=== PATIENT | male | born 1980 | race Caucasian/White ===

== ENCOUNTER 2024-04-17 16:43 | Inpatient (IN) | payer BC, SELFPAY ==
[2024-04-17 12:42] VITALS: BP 137/92
--- NOTE | 2024-04-17 13:40 | ED.GENMED ---
History of Present Illness
<Gregg Russo, DO - Last Filed: 04/18/24 06:14>
General
Chief Complaint: Skin Problem
Source: patient and records (Prior perianal abscess April 2022)
Exam Limitations: none
Time Seen by Provider: 04/17/24 13:16
Nursing documentation reviewed up to this point in time: agreed with
Travel History
Have you had any contact with someone who has COVID-19?: No
Do you have any symptoms of coronavirus? Fever > 100 degrees, chills, cough, shortness of breath, sore throat, loss of taste or smell, muscle aches, or headache?: No
History of Present Illness
History of Present Illness:
44-year-old male presents emergency room complaining of perianal swelling, concern for perianal abscess as he had it 2 years ago.
Past History
<Gregg Russo, DO - Last Filed: 04/18/24 06:14>
Past History
ED Past Medical History: Asthma, Hypercholesterolemia and NIDDM
ED Past Surgical History: Other (Perianal abscess drainage)
Social History
Tobacco: Non-smoker
Alcohol: Occasional
Personal:
Review of Systems
<Gregg Russo, DO - Last Filed: 04/18/24 06:14>
Review of Systems
Allergies reviewed?: Yes
All Other Systems: Not applicable
Constitutional: Reports no symptoms; Denies fever
EENT: Reports no symptoms
Respiratory: Reports no symptoms
Cardiac: Reports no symptoms
ABD/GI: Reports other (Lump right perianal)
: Reports no symptoms
Musculoskeletal: Reports no symptoms
Skin: Reports no symptoms
Neurological: Reports no symptoms
Endocrine: Reports no symptoms
Hematologic/Lymphatic: Reports no symptoms
Psychiatric: Reports no symptoms
Phy Exam
<Gregg Russo, DO - Last Filed: 04/18/24 06:14>
Physical Exam
Physical Exam:
Physical Exam
General: Afebrile
Neck: supple. no meningeal signs. normal posterior pharynx
Heart: s1/s2 regular rate and rhythm, no murmur. equal radial
pulses.
HEENT: Pupils equal round reactive to light, EOMI
Lungs: no acute respiratory distress. clear bilaterally
Abdomen: normal bowel sounds. not tender. no CVAT, perianal swelling right side 10 o'clock position
Neuro: alert and oriented. no focal neurological deficits cranial nerves II through XII intact
Skin: no rash
Psychiatric: well kept. interactive and cooperative
Extremities: no edema. no calf tenderness. negative homans. good distal pulses
Course
<Gregg Russo, DO - Last Filed: 04/18/24 06:14>
Orders/Labs/Results
Orders:
Orders
04/17/24 Breakfast
1800 calorie (15 carb) Diabetic
At Your Request: Full Participation
04/17/24 13:18
IV Insert/Care/Rem.- Treatment PRN
04/17/24 13:20
CT Abd/pelvis W Iv Cont Urgent
Comment:
Reason For Exam: rectal pain, hx perianal abscess
04/17/24 13:38
Type+Screen Urgent
Complete Blood Count/With Diff Urgent
Comprehensive Metabolic Panel Urgent
04/17/24 16:22
Admit/Transfer Patient As Directed
Co-Sign Provider:
Level of Care: Inpatient admission
Assign to:: Medical/Surgical
Physician / Group: ban
Diagnosis: rectal abscess
Reason for Hospitalization: rectal abscess
Expected length of stay greater than two midnights?: Yes
ELOS- Estimated Length of Stay in days: 3
I certify the patient meets the requirements for IP care: Yes
04/17/24 16:23
Code Status As Directed
Resuscitation Status: Full Code
04/17/24 16:27
Piperacillin/Tazo 4.5 Gram [Zosyn] 4.5 gram in 100 ml IV NOW
04/17/24 16:42
Ibuprofen [Motrin] 600 mg PO Q6HPRN PRN
04/17/24 17:12
Acetaminophen [Tylenol] 650 mg PO Q4HPRN PRN
Dextrose 50%-Water [Dextrose 50% Syringe] 12.5 grams IV [id number] PRN
Glucagon [GlucaGen] 1 mg IM PRN PRN
Insulin Aspart Corrective Low [Novolog Flexpen-Low Resistance] See Protocol SC AC
04/17/24 17:12
ColoRectal Surgery Consult Routine
Consulting Provider: Ck Crook
Was physician already notified: Yes
Activity As Directed
Activity Level: Out of Bed-Early Mobility
Bedside Glucose Monitoring As Directed
Frequency: AC&HS
Additional Instructions:: Change to q6h if pt on TPN, tube feeding or not eating
Intake/ Output As Directed
Frequency: Per unit guidelines
Pneumatic Compression Sleeves As Directed
Type: Thigh high
Vital Signs As Directed
Frequency: Per unit guidelines
DX Deep Vein Thrombosis Video Routine
04/17/24 20:00
Budesonide/Formoterol 160/4.5 [Symbicort 160/4.5 Mcg Inhaler] 2 puff INH R Q12
04/18/24 00:00
Piperacillin/Tazo 3.375 Gram [Zosyn] 3.375 gram in 50 ml IV Q6
04/18/24 04:22
Basic Metabolic Panel IN AM
Complete Blood Count/No Diff IN AM
Glycohemoglobin (HgbA1c) IN AM
04/18/24 Breakfast
NPO
Allow oral meds: Yes
Allow clear liquids: No
04/19/24 06:00
Basic Metabolic Panel IN AM
Complete Blood Count/No Diff IN AM
04/20/24 06:00
Basic Metabolic Panel IN AM
Complete Blood Count/No Diff IN AM
04/21/24 06:00
Basic Metabolic Panel IN AM
Complete Blood Count/No Diff IN AM
04/22/24 06:00
Basic Metabolic Panel IN AM
Complete Blood Count/No Diff IN AM
Abnormal Lab Results
04/17/24
13:38
WBC 11.1 H 10^3/uL
(4.8-10.8)
Absolute Neuts (auto) 8.4 H 10^3/uL
(1.4-6.5)
Absolute Monos (auto) 1.0 H 10^3/uL
(0.1-0.6)
Neutrophils % 75.3 H %
(42.2-75.2)
Lymphocytes % 14.0 L %
(20.5-51.1)
Creatinine 0.6 L mg/dL
(0.7-1.3)
Glucose 116 H mg/dl
(70-99)
04/17/24 13:38
04/17/24 13:38
Vital Signs
Initial and Last Documented VS:
Initial Vital Signs
Temp Pulse Resp BP Pulse Ox
98.6 F 92 16 137/92 98
04/17/24 12:42 04/17/24 12:42 04/17/24 12:42 04/17/24 12:42 04/17/24 12:42
Last Documented Vital Signs
Temp Pulse Resp BP Pulse Ox
98.9 F 86 19 114/56 98
04/17/24 23:20 04/17/24 23:20 04/17/24 23:20 04/17/24 23:20 04/17/24 23:20
yasmin;Kelechi Moore, DO - Last Filed: 04/17/24 15:43>
Orders/Labs/Results
Orders:
Orders
04/17/24 Breakfast
1800 calorie (15 carb) Diabetic
At Your Request: Full Participation
04/17/24 13:18
IV Insert/Care/Rem.- Treatment PRN
04/17/24 13:20
CT Abd/pelvis W Iv Cont Urgent
Comment:
Reason For Exam: rectal pain, hx perianal abscess
04/17/24 13:38
Type+Screen Urgent
Complete Blood Count/With Diff Urgent
Comprehensive Metabolic Panel Urgent
04/17/24 16:22
Admit/Transfer Patient As Directed
Co-Sign Provider:
Level of Care: Inpatient admission
Assign to:: Medical/Surgical
Physician / Group: ban
Diagnosis: rectal abscess
Reason for Hospitalization: rectal abscess
Expected length of stay greater than two midnights?: Yes
ELOS- Estimated Length of Stay in days: 3
I certify the patient meets the requirements for IP care: Yes
04/17/24 16:23
Code Status As Directed
Resuscitation Status: Full Code
04/17/24 16:27
Piperacillin/Tazo 4.5 Gram [Zosyn] 4.5 gram in 100 ml IV NOW
04/17/24 16:42
Ibuprofen [Motrin] 600 mg PO Q6HPRN PRN
04/17/24 17:12
Acetaminophen [Tylenol] 650 mg PO Q4HPRN PRN
Dextrose 50%-Water [Dextrose 50% Syringe] 12.5 grams IV [id number] PRN
Glucagon [GlucaGen] 1 mg IM PRN PRN
Insulin Aspart Corrective Low [Novolog Flexpen-Low Resistance] See Protocol SC AC
04/17/24 17:12
ColoRectal Surgery Consult Routine
Consulting Provider: Ck Crook
Was physician already notified: Yes
Activity As Directed
Activity Level: Out of Bed-Early Mobility
Bedside Glucose Monitoring As Directed
Frequency: AC&HS
Additional Instructions:: Change to q6h if pt on TPN, tube feeding or not eating
Intake/ Output As Directed
Frequency: Per unit guidelines
Pneumatic Compression Sleeves As Directed
Type: Thigh high
Vital Signs As Directed
Frequency: Per unit guidelines
DX Deep Vein Thrombosis Video Routine
04/17/24 20:00
Budesonide/Formoterol 160/4.5 [Symbicort 160/4.5 Mcg Inhaler] 2 puff INH R Q12
04/18/24 00:00
Piperacillin/Tazo 3.375 Gram [Zosyn] 3.375 gram in 50 ml IV Q6
04/18/24 04:22
Basic Metabolic Panel IN AM
Complete Blood Count/No Diff IN AM
Glycohemoglobin (HgbA1c) IN AM
04/18/24 Breakfast
NPO
Allow oral meds: Yes
Allow clear liquids: No
04/19/24 06:00
Basic Metabolic Panel IN AM
Complete Blood Count/No Diff IN AM
04/20/24 06:00
Basic Metabolic Panel IN AM
Complete Blood Count/No Diff IN AM
04/21/24 06:00
Basic Metabolic Panel IN AM
Complete Blood Count/No Diff IN AM
04/22/24 06:00
Basic Metabolic Panel IN AM
Complete Blood Count/No Diff IN AM
Abnormal Lab Results
04/17/24
13:38
WBC 11.1 H 10^3/uL
(4.8-10.8)
Absolute Neuts (auto) 8.4 H 10^3/uL
(1.4-6.5)
Absolute Monos (auto) 1.0 H 10^3/uL
(0.1-0.6)
Neutrophils % 75.3 H %
(42.2-75.2)
Lymphocytes % 14.0 L %
(20.5-51.1)
Creatinine 0.6 L mg/dL
(0.7-1.3)
Glucose 116 H mg/dl
(70-99)
04/17/24 13:38
04/17/24 13:38
Vital Signs
Initial and Last Documented VS:
Initial Vital Signs
Temp Pulse Resp BP Pulse Ox
98.6 F 92 16 137/92 98
04/17/24 12:42 04/17/24 12:42 04/17/24 12:42 04/17/24 12:42 04/17/24 12:42
Last Documented Vital Signs
Temp Pulse Resp BP Pulse Ox
98.9 F 86 19 114/56 98
04/17/24 23:20 04/17/24 23:20 04/17/24 23:20 04/17/24 23:20 04/17/24 23:20
<Gregg Russo, DO - Last Filed: 04/18/24 06:14>
MDM/Problems Addressed
Differential Diagnosis Includes:
Perianal abscess
MDM/Problems Addressed:
44-year-old male with likely right perianal abscess. CT scan pending. Will discuss with colorectal surgery after CT is resulted
Chronic conditions affecting care: DM
<Gregg Russo, DO - Last Filed: 04/18/24 06:14>
*Radiology
Radiology exam reviewed: radiology read reviewed (ct a/p 3 cm perirectal abscess, moderate fat only containing umbilical hernia)
*Pulse Oximetry
Patient hypoxic: no
*EKG
Interpreted by ED Provider?: NA
*Tailer In Interpretation
Rate: Tailer In- N/A
Data Reviewed
Review of Other/Old Records Reveals: Operative Reports (Prior bedside incision and drainage to drain perianal abscess by Dr. Crook 05/03/2022)
Source: records
<Kelechi Moore, DO - Last Filed: 04/17/24 15:43>
*Critical Care Note
Total Time (30-74mins, 75-104mins- exclusive of procedures): Not Applicable
<Gregg Russo, DO - Last Filed: 04/18/24 06:14>
Patient Management
Social determinants of health affecting care: Living situation
Discussion with other providers: Hospitalist and Nail Expert (Colorectal surgery Dr. Pham)
Escalation/DeEscalation of care consider admission/obs:
Admit indicated
<Kelechi Moore, DO - Last Filed: 04/17/24 15:43>
Update Note
Update Note:
Signout pending CAT scan, received a message from colorectal surgery patient with a small recurrent abscess plan to be admitted to the medical service for antibiotics
Reviewed with patient and nursing
ED Attending Note
<Gregg Russo, DO - Last Filed: 04/18/24 06:14>
-
Portions of this chart may have been created with voice recognition software.� Occasional wrong word or��sound alike� substitutions may have occurred due to the inherent limitations of voice recognition software.
Discharge Plan
Departure
Patient Disposition: Admit
Date of Disposition: 04/17/24
Time of Disposition: 15:41
Admit to: Med/Surg
Presentation/result/management discussed w/ accepting MD/DO: Hospitalist
Patient with high blood pressure during this ER visit?: No
Condition: Good
Discharge Problem:
Perianal abscess
Interventions
Interventions:
*Risk Screen - Suicide Last Done: 04/17/24 12:42
*General Assessment Last Done: 04/17/24 12:42
*Neglect/Abuse Screening Last Done: 04/17/24 12:42
ED- Fall Risk Assessment Last Done: 04/17/24 13:55
*ED COVID-19 Vaccine History Last Done: 04/17/24 14:47
*Nursing Disposition Last Done: 04/17/24 17:09
Discharge Date and Time
Discharge Date/Time: 04/17/24 17:09
[2024-04-17 13:46] LABS: % Basophils 0.3 % (0-2); % Immature Granulocytes 0.4 % (0-0.5); % Neutrophils 75.3 % (42.2-75.2); Absolute Eosinophils 0.1 10^3/uL (0-0.7); Absolute Lymphocytes 1.6 10^3/uL (1.2-3.4); Absolute Neutrophils 8.4 10^3/uL (1.4-6.5); Hematocrit 41.4 % (39.0-52.0); Hemoglobin 14.3 g/dL (13.0-18.0); Mean Corp Hgb Conc. 34.5 g/dL (33.0-37.0); Mean Corpuscular Hgb 30.4 pg (27.0-31.0); Mean Corpuscular Volume 88.1 fL (80.0-94.0); Mean Platelet Volume 9.7 fL (7.4-10.4); Nucleated Red Blood Cells % 0 % (-); Platelet Count 235 10^3/uL (130-400); Red Cell Dist. Width 13.8 % (11.5-14.5); White Blood Cell Count 11.1 10^3/uL (4.8-10.8)
[2024-04-17 14:07] LABS: ALT (SGPT) 25 U/L (0-50); AST (SGOT) 23 U/L (17-59); Albumin 3.6 g/dl (3.5-5.0); Alkaline Phosphatase 90 U/L (38-126); Blood Urea Nitrogen 18 mg/dl (9-20); Calcium 9.1 mg/dl (8.4-10.2); Carbon Dioxide 25 mmol/L (22-30); Chloride 107 mmol/L (98-107); Glucose 116 mg/dl (70-99); Sodium 140 mmol/L (135-145); Total Protein 6.6 g/dl (6.3-8.2); eGFR > 60.00
[2024-04-17 15:35] VITALS: BP 122/64
--- NOTE | 2024-04-17 16:07 | HPS.HSE ---
Family Physician
<HARSHIL Giles - Last Filed: 04/17/24 16:29>
-
Family Physician: Clive Ferguson
Chief Complaint
<HARSHIL Giles - Last Filed: 04/17/24 16:29>
-
Rectal pain
History of Present Illness
44-year-old with past medical history for asthma, type 2 diabetes, rectal abscess. Presented to us with rectal swelling as well as pain for past 3 to 4 days. Denies any constipation, diarrhea, abdominal pain. Pain worse with sitting. He took
Advil this morning. patient denied any fever, chills, chest pain, short of breath. Patient denied any headache, dizziness, syncopal episode. Patient denied dysuria hematuria
Medical History
<HARSHIL Giles - Last Filed: 04/17/24 16:29>
Past Medical History
Past Medical History: Reports Other
Additional Past Medical History:
Perianal abscess hypertension hyperlipidemia
Type 2 diabetes
Past Surgical History: Reports Other
Additional Past Surgical History:
drainage of perianal abscess
Social History
Tobacco: Non-smoker
Alcohol: Occasional
Drug: None
Personal:
Living: With Family
Employment: Employed
Family History
Family History: Not pertinent
Allergies / Home Medications
Allergies reflects when Allergies were last updated in [facility].
Home Medications with original date entered in [facility]
Allergy/Medication List:
Allergies
Allergy/AdvReac Type Severity Reaction Status Date / Time
No Known Allergies Allergy Verified 04/17/24 12:42
Home Medications
budesonide-formoterol HFA 160 mcg-4.5 mcg/actuation aerosol inhaler (Symbicort) 2 puff inhalation R Q12 Lung/breathing issues 05/03/22
ibuprofen 200 mg tablet (Advil) 200 mg PO Q6HPRN PRN mild pain 04/17/24
semaglutide 2 mg/dose (8 mg/3 mL) subcutaneous pen injector (Ozempic) 2 mg SC TU 04/17/24
Review of Systems
<HARSHIL Giles - Last Filed: 04/17/24 16:29>
-
Constitutional: Reports No Symptoms
EENT: Reports No Symptoms
Respiratory: Reports No Symptoms
Cardiac: Reports No Symptoms
Abdomen/GI: Reports No Symptoms
: Reports No Symptoms
Musculoskeletal: Reports No Symptoms
Skin: Reports No Symptoms
Neurological: Reports No Symptoms
Endocrine: Reports No Symptoms
Hematologic/Lymphatic: Reports No Symptoms
Psych: Reports No Symptoms
Physical Exam
<HARSHIL Giles - Last Filed: 04/17/24 16:29>
Vital Signs
Vital Signs
Temp Pulse Resp BP Pulse Ox
98.6 F 86 16 122/64 95
04/17/24 12:42 04/17/24 15:35 04/17/24 12:42 04/17/24 15:35 04/17/24 15:35
Physical Exam
General: Well Developed, Well Nourished and No Apparent Distress
HEENT: NormoCephalic, Moist mucous membranes and Atraumatic
Respiratory: Clear
Cardiac: S1/S2 and Regular Rhythm; No Murmur or Rub
GI: Soft, Non Tender, Non Distended and Normal Bowel Sounds; No Organomegaly
Rectal: Deferred by Provider
Musculoskeletal: No Clubbing, No Cyanosis and No Edema
Skin: No Rash
Neuro: AO x 3 and Nonfocal/grossly intact
Psych: Calm
Laboratory Results
<HARSHIL Giles - Last Filed: 04/17/24 16:29>
-
04/17/24 13:38
04/17/24 13:38
Laboratory Results
Total Bilirubin 1.0 mg/dl (0.2-1.3) 04/17/24 13:38
AST 23 U/L (17-59) 04/17/24 13:38
ALT 25 U/L (0-50) 04/17/24 13:38
Alkaline Phosphatase 90 U/L (38-126) 04/17/24 13:38
Data Reviewed
<HARSHIL Giles - Last Filed: 04/17/24 16:29>
-
Lab Data: Labs Reviewed by me
Impression/Plan
<HARSHIL Giles - Last Filed: 04/17/24 16:29>
-
# Recurrent abscess
-WBC 11.1
-CT abdomen pelvis with impression of 3 cm distal perirectal abscess
-For I&D tomorrow
-Keep n.p.o. after midnight
-iv Zosyn
-Tylenol prn for fever,pain
-Colorectal consulted
# History of asthma
-No acute exacerbation
-Symbicort continued
# Type 2 diabetes
-Hold Ozempic
-Carb controlled diet
-Sliding scale
# DVT prophylaxis
-SCD
# CODE STATUS
-Full code.
<Jung Mcpherson MD - Last Filed: 04/17/24 16:58>
-
I saw and examined the patient.
The DIRECTOR MEDICAL SAFETY or PA's note was reviewed and I agree with the note.
Comment:
CVS: S1-S2 normal
Chest: CTA B/L
Abdomen: Soft, NT / Bowel sounds present
Extremities: No edema, normal pulses
INDUCTION MACHINE SETTER: Non focal exam
#Perirectal abscess- 3 cm size.
Zosyn
I and D planned tomorrow by Colorectal.
Send OR Cultures if possible.
# History of asthma
-No acute exacerbation
-Symbicort continued
# Type 2 diabetes
-Hold Ozempic
-Carb controlled diet
-Sliding scale
-Check HbA1C
# DVT prophylaxis
-SCD
# CODE STATUS
-Full code.
Plan
# Recurrent abscess
-WBC 11.1
-CT abdomen pelvis with impression of 3 cm distal perirectal abscess
-For I&D tomorrow
-Keep n.p.o. after midnight
-iv Zosyn
-Tylenol prn for fever,pain
-Colorectal consulted
# History of asthma
-No acute exacerbation
-Symbicort continued
# Type 2 diabetes
-Hold Ozempic
-Carb controlled diet
-Sliding scale
# DVT prophylaxis
-SCD
# CODE STATUS
-Full code.
[2024-04-17] MEDS: ZOSYN 100 IV (16:33)
[2024-04-17] MEDS: MOTRIN 600 MG PO ×2 (17:01→23:05)
[2024-04-17 17:36] LABS: Glucose - Point of Care 100 mg/dl (70-99)
[2024-04-17 17:39] VITALS: BP 111/68; BMI 41.2
[2024-04-17] MEDS: SYMBICORT 160/4.5 MCG INHALER 2 PUFF INH (18:12)
[2024-04-17 21:32] LABS: Glucose - Point of Care 97 mg/dl (70-99)
[2024-04-17] MEDS: ZOSYN 50 IV (23:03)
[2024-04-17 23:20] VITALS: BP 114/56
[2024-04-18] MEDS: ZOSYN 50 IV ×3 (05:09→17:00)
[2024-04-18] MEDS: MOTRIN 600 MG PO (05:09)
[2024-04-18 05:27] LABS: Hematocrit 40.6 % (39.0-52.0); Hemoglobin 13.8 g/dL (13.0-18.0); Mean Corpuscular Hgb 30.3 pg (27.0-31.0); Mean Corpuscular Volume 89.2 fL (80.0-94.0); Mean Platelet Volume 10.1 fL (7.4-10.4); Platelet Count 232 10^3/uL (130-400); Red Blood Cell Count 4.55 10^6/uL (4.70-6.10); White Blood Cell Count 10.9 10^3/uL (4.8-10.8)
[2024-04-18 05:52] LABS: Blood Urea Nitrogen 14 mg/dl (9-20); Calcium 9.1 mg/dl (8.4-10.2); Carbon Dioxide 26 mmol/L (22-30); Chloride 103 mmol/L (98-107); Estimated Creatinine Clearance > 125 ml/min; Glucose 89 mg/dl (70-99); Potassium 4.3 mmol/L (3.5-5.1); Sodium 137 mmol/L (135-145); eGFR > 60.00
[2024-04-18 07:30] VITALS: BP 111/73
[2024-04-18] MEDS: SYMBICORT 160/4.5 MCG INHALER 2 PUFF INH (07:52)
[2024-04-18 08:21] LABS: Glucose - Point of Care 108 mg/dl (70-99)
[2024-04-18 09:08] LABS: Glycohemoglobin (HgbA1c) 5.6 % (4.0-5.6)
[2024-04-18 11:36] LABS: Glucose - Point of Care 94 mg/dl (70-99)
--- NOTE | 2024-04-18 12:53 | CON.CRS ---
Consultation
-
Date/Time Consultation Requested: 04/17/241711
Requesting Provider: Rich
Medical History
-
Chief Complaint: perianal pain
History of Present Illness:
Mr. Adamson is a 44 yo NIDDM male with prior perianal abscess treated with I&D in 2021 who presented through the ED with perianal pain with abscess once again noted. He notes discomfort over the past 3-4 days rectally but denies fevers or chills. He
denies bowel or bladder changes. He has been taking Ozempic with a 60lb weight loss with normal A1c this admission. Prior to exam this morning, he notes the abscess opened up and began draining a mix of pus and blood. On exam, there is an open area
with purulent drainage.
Past Medical History
Past Medical History: Asthma and NIDDM
Past Surgical History: Other (I&D of perianal abscess)
Social History
Tobacco: Non-Smoker
Family History
Family History: Reviewed & Not Pertinent
Allergies / Home Medications
Allergy/AdvReac Type Severity Reaction Status Date / Time
No Known Allergies Allergy Verified 04/17/24 12:42
�Medication �Instructions �Recorded �Confirmed �Type
budesonide-formoterol HFA 160 2 puff inhalation R Q12 05/03/22 04/17/24 History
mcg-4.5 mcg/actuation aerosol Lung/breathing issues
inhaler (Symbicort)
ibuprofen 200 mg tablet (Advil) 200 mg PO Q6HPRN PRN mild pain 04/17/24 04/17/24 History
semaglutide 2 mg/dose (8 mg/3 mL) 2 mg SC TU 04/17/24 04/17/24 History
subcutaneous pen injector (Ozempic)
Review of Systems
-
History Source: Patient
All other systems: Negative unless noted
A 10 point review of systems was completed, and was negative except as per HPI.
Physical Exam
Vital Signs
Temp 99.2 F 04/18/24 07:30
Pulse 97 04/18/24 07:56
Resp Rate 16 04/18/24 07:56
Blood pressure 111/73 04/18/24 07:30
SaO2 99 04/18/24 07:56
04/17/24 04/18/24 04/19/24
06:59 06:59 06:59
Actual Weight 141.566 kg
Body Mass Index (BMI) 41.2
Lab Results / Allergies
04/18/24 04:22
04/18/24 04:22
WBC 10.9 10^3/uL (4.8-10.8) H 04/18/24 04:22
Hgb 13.8 g/dL (13.0-18.0) 04/18/24 04:22
Hct 40.6 % (39.0-52.0) 04/18/24 04:22
Plt Count 232 10^3/uL (130-400) 04/18/24 04:22
Abs Immat Gran (auto) 0.0 10^3/uL (0-0.05) 04/17/24 13:38
Neutrophils % 75.3 % (42.2-75.2) H 04/17/24 13:38
Allergy/AdvReac Type Severity Reaction Status Date / Time
No Known Allergies Allergy Verified 04/17/24 12:42
Physical Exam
General: Well Developed and Well Nourished
HEENT: Moist Mucous Membranes
Respiratory: Non Labored Respirations
GI: Soft, Non Tender and Non Distended
Rectal: Other (perianal abscess has opened and draining well. ABD pad present with purulent drainage noted)
Skin: Warm and Dry
Neuro: Awake, Alert and AO x 3
Psych: Calm
Assessment / Plan
-
44 yo male with h/o NIDDM admitted overnight for management of perianal abscess without associated fevers or bladder and bowel changes. Mild leukocytosis. A1c normal. Prior to exam, abscess opened and drained spontaneously. No need for further
operative drainage. Pain improved to site.
--No plans for operative intervention, will plan surgical follow up as outpatient with Dr. Crook
--Ok for diet
--Ok for d/c from surgical standpoint after evening dose of zosyn @1800 with transition to PO antibiotics
--Sitz baths TID
--Continue home meds
--- NOTE | 2024-04-18 13:31 | W.PN.HOSP.TC ---
Today's Communication/Plan
-
Discharge after 6 pm AB
Assessment / Plan
Assessment / Plan
He drained the abscess on his own
CVS: S1-S2 normal
Chest: CTA B/L
Abdomen: Soft, NT / Bowel sounds present
Extremities: No edema
#Perirectal abscess- 3 cm size.
Zosyn one more dose to complete 24 hours
No I and D
Change AB to Cefdinir and Flagyl - to start tonight
Sitz bath
# History of asthma
-No acute exacerbation
-Symbicort continued
# Type 2 diabetes- AiC 5.6 now
-Ozempic as OP
-Carb controlled diet
# DVT prophylaxis
-SCD
# CODE STATUS
-Full code.
D/W RN
D/W Surgeon- Recommended discharge after 6 pm AB
Anticipated Discharge: Today
Subjective/Interval History
-
Date of Service: April 18, 2024
Objective Data
-
Labs:
Laboratory Results
04/18/24
04:22
WBC 10.9 H
Hgb 13.8
Hct 40.6
Plt Count 232
Sodium 137
Potassium 4.3
Chloride 103
Carbon Dioxide 26
BUN 14
Creatinine 0.8
Glucose 89
Calcium 9.1
Vital Signs:
Vital Signs
Temp Pulse Resp BP Pulse Ox
99.2 F 97 16 111/73 99
04/18/24 07:30 04/18/24 07:56 04/18/24 07:56 04/18/24 07:30 04/18/24 07:56
I&O
04/17/24 04/18/24 04/19/24
06:59 06:59 06:59
Intake Total 1060 / 1060
Balance 1060 / 1060
--- NOTE | 2024-04-18 14:06 | CM ---
Met with patient at bedside; initial assessment completed
Pharmacy verified: [facility] [place]
Patient lives with and 2 children (ages 14 & 10) in a multilevel home; 1 step to enter; 14 steps between floors; powder room on 1st floor; 2nd floor bath has walk-in shower with grab bar
PLOF: reports he is independent with ambulation, steps, and ADLs; drives; works time clock repairer. History of Asthma; no SOB on stairs
Transportation: plans to drive self home
SNF/Rehab/Home Health utilization history: none
Plan: discharge to home without services; after 6 PM dose of medication
--- NOTE | 2024-04-18 15:18 | W.DS.TRANS ---
Addendum entered and electronically signed by Jung Mcpherson MD 04/18/24 15:20:
Dictation- [id number]
Original Note:
DC Summary - Balloon [employer]
-
Discharge Instructions:
Discharge Diagnosis/Procedures Perirectal abscess
Diet As tolerated
Activity As tolerated
Driving Restrictions As prior to admission
Wound Care Keep the wound area clean. Take sitz baths three
times a day and after bowel movements. Ok to
keep a gauze pad to cover the area, avoid tape
if able.
Instructions: How to Do a Sitz Bath
Stand-Alone Forms:
Changes to Home Medications: Yes
Discharge Medications:
DC Medications w/original date entered in [facility]
budesonide-formoterol HFA 160 mcg-4.5 mcg/actuation aerosol inhaler (Symbicort) 2 puff inhalation R Q12 Lung/breathing issues 05/03/22
acetaminophen 325 mg tablet 650 mg (2 x 325 mg) PO Q4HPRN PRN mild pain #0 tabs 04/18/24
cefdinir 300 mg capsule 300 mg PO BID Infection #20 caps 04/18/24
famotidine 20 mg tablet (Pepcid) 20 mg PO BID PRN when you take Ibuprofen #20 tabs 04/18/24
ibuprofen 600 mg tablet 600 mg PO Q6HPRN PRN moderate pain #0 tabs 04/18/24
metronidazole 500 mg tablet 500 mg PO TID Infection #30 tabs 04/18/24
semaglutide 2 mg/dose (8 mg/3 mL) subcutaneous pen injector (Ozempic) 2 mg (0.75 mL) SC TU Diabetes #0 mL 04/18/24
Home Medication Changes
new
cefdinir 300 mg capsule 300 mg PO BID Infection #20 caps 04/18/24
famotidine 20 mg tablet (Pepcid) 20 mg PO BID PRN when you take Ibuprofen #20 tabs 04/18/24
ibuprofen 600 mg tablet 600 mg PO Q6HPRN PRN moderate pain #0 tabs 04/18/24
metronidazole 500 mg tablet 500 mg PO TID Infection #30 tabs 04/18/24
Pending Results: No
[2024-04-18 15:22] VITALS: BP 113/69
== END 2024-04-18 18:00 | disposition home or self-care (01) | DRG 395 ==
LOC: 3 WEST ACU 16:43
PROVIDERS: Emergency Medicine; Registered Nurse; ADMITTING PHYSICIAN Hospitalist; EMERGENCY PHYSICIAN Emergency Medicine; FAMILY PHYSICIAN Family Medicine; OTHER PHYSICIAN Surgery
DX: K61.2 Anorectal abscess (principal); E11.9 Type 2 diabetes mellitus without complications
CPT/HCPCS: 74177; 80048; 80053; 82962; 83036; 85025; 85027; 86850; 86900; 86901; 94640; 96365; 99285; Q9967